=== PATIENT | male | born 1995 | race African-American/Black ===

== ENCOUNTER 2023-09-08 22:13 | Emergency (ER) | payer OTHER ==
[~2023-09-08] VITALS: Ht 167.6 cm; Wt 81.7 kg
[2023-09-08] MEDS ORDERED: METH-1164 PO (23:38)
[2023-09-08] MEDS ORDERED: PRED20TA PO (23:38)
[2023-09-08] MEDS: predniSONE 20 MG TAB PO ONE (23:40)
[2023-09-08 23:45] VITALS: BP 121/68; TEMP 97.8; O2SAT 100
== END 2023-09-08 23:59 | disposition home or self-care (01) ==
LOC: M ED 22:13
DX: M54.2 Cervicalgia (principal); Z79.52 Long term (current) use of systemic steroids; Z79.899 Other long term (current) drug therapy
CPT/HCPCS: 99283; J7512

== ENCOUNTER → 2024-10-30 | Outpatient (CLI) | payer OTHER ==
[~2024-10-30] MED LIST: AMOX875T2 PO; E-Z-GAS II EFFERVESCENT PACKET (SODIUM BICARB./CITRIC ACID/SIMETHICONE) As Ordered ONE; E-Z-HD 98% w/w 340 GM SUSP BTL As Ordered ONE; E-Z-PAQUE 96% w/w SUSP 176 GM BTL As Ordered ONE; METH-1164 PO; PRED20TA PO
== END ==
LOC: M RAD 08:37
PROVIDERS: ATTEND Physician Assistant
DX: R12 Heartburn (principal); K21.9 Gastro-esophageal reflux disease without esophagitis